=== PATIENT | male | born 1945 | race Caucasian/White ===

== ENCOUNTER → 2019-07-04 | Outpatient (CLI) | payer OTHER, MEDICARE | LOC: HYPER 06-27 10:59 | DX: T81.89XD Other complications of procedures, not elsewhere classified, subsequent encounter (principal); L98.421 Non-pressure chronic ulcer of back limited to breakdown of skin; G90.09 Other idiopathic peripheral autonomic neuropathy; G62.9 Polyneuropathy, unspecified; M54.16 Radiculopathy, lumbar region; M51.36 Other intervertebral disc degeneration, lumbar region; M99.53 Intervertebral disc stenosis of neural canal of lumbar region; F06.4 Anxiety disorder due to known physiological condition; F32.9 Major depressive disorder, single episode, unspecified; Z97.8 Presence of other specified devices; Z86.718 Personal history of other venous thrombosis and embolism; Z13.31 Encounter for screening for depression; Z87.891 Personal history of nicotine dependence; Y83.8 Other surgical procedures as the cause of abnormal reaction of the patient, or of later complication, without mention of misadventure at the time of the procedure ==